=== PATIENT | male | born 1970 | race Caucasian/White ===

== ENCOUNTER 2020-01-22 12:40 | Emergency (ER) | payer BC, SELFPAY ==
[2020-01-22 13:19] LABS: Bilirubin Small (Negative); Blood, Urine Large (Negative); Clarity Cloudy (Clear); Glucose, Urine (Dipstick) Negative (Negative); Ketone, Urine 40 mg/dL (Negative); Leukocyte Negative (Negative); Nitrite Negative (Negative); Protein, Urine (Dipstick) 100 mg/dL (Neg-Trace); Specific Gravity, Urine 1.015 (1.005-1.030); pH, Urine 8.5 (5.0-9.0)
[2020-01-22] MEDS ORDERED: Morphine 4 MG/ML VIAL ONE (13:23)
[2020-01-22] MEDS ORDERED: Promethazine HCl 25 MG/ML VIAL ONE (13:23)
[2020-01-22] MEDS ORDERED: Sodium Chloride 0.9% 1,000 ML ONE (13:23)
[2020-01-22 13:24] LABS: #Basophils 0.1 thou/uL (0.0-0.2); #Monocytes 0.5 thou/uL (0.11-0.59); #Neutrophils 3.5 thou/uL (1.40-6.50); %Basophils 1.6 % (0.0-1.0); %Eosinophils 0.1 % (0.0-10.0); %Lymphocytes 33.3 % (21.0-51.0); %Monocytes 7.4 % (0.0-10.0); %Neutrophils 57.6 % (42.0-75.0); Hemoglobin 14.2 g/dL (14.0-18.0); Mean Corpuscular HGB CONC 33.5 g/dL (32.0-36.0); Mean Corpuscular Hemoglobin 29.9 pg (27.0-31.0); Mean Corpuscular Volume 89.1 fL (78.0-98.0); Mean Platelet Volume 9.2 fL (7.4-10.4); Platelet Count 213 thou/uL (130-400); RBC Distribution Width 11.5 % (11.5-14.5); Red Blood Cell (RBC) Count 4.75 mill/uL (4.70-6.10); White Blood Cell (WBC) Count 6.1 thou/uL (4.8-10.8)
[2020-01-22 13:32] LABS: RBC/HPF Greater than 50 HPF (0-3)
[2020-01-22 13:33] LABS: Bacteria/HPF 1+ HPF (None Seen); Mucous/LPF 1+ LPF (<2+); Squamous Epithelial 0-3 HPF (0-3); WBC/HPF 0-3 HPF (0-3)
[2020-01-22 14:02] LABS: Anion Gap 19 mmol/L (10-20); BUN (Urea Nitrogen) 14 mg/dL (8.9-20.6); Calc. Creatinine Clearance 0 mL/min (70-130); Calcium 9.1 mg/dL (7.8-10.44); Carbon Dioxide 18 mmol/L (22-29); Chloride 107 mmol/L (98-107); Estimated GFR-MDRD 86; Glucose 98 mg/dL (70-105); Potassium 3.5 mmol/L (3.5-5.1); Sodium 140 mmol/L (136-145)
[2020-01-22] MEDS ORDERED: Ketorolac Tromethamine 30 MG/ML VIAL ONE (14:17)
--- NOTE | 2020-01-22 14:57 | CT ---
CT ABDOMEN AND PELVIS WITHOUT CONTRAST STONE PROTOCOL: HISTORY: Flank pain and hematuria. COMPARISON: None. FINDINGS: Lung bases are clear. No pericardial effusion. Mild left hydroureteral nephrosis partially obstructing 2 x 2 mm calculus distal left ureter at the u reterovesicular junction. Low-grade left perinephric stranding. No right-sided hydroureteral nephrosis or nephroureterolithiasis. Small hypodensity superior pole of the right kidney has fluid attenuation to suggest a cyst. Mild diverticular disease of the sigmoid colon without active current inflammation. The appendix is visualized and is normal. No acute osseous abnormality. 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 IMPRESSION: 1. Low-grade partially obstructing left distal ureteral 2 x 2 mm calculus at the ureterovesicular ju nction with mild hydroureteral nephrosis. 2. No other renal calculi are appreciated. POS: [facility]
== END 2020-01-22 14:30 | disposition home or self-care (01) ==
LOC: MADERS 12:40
DX: N13.2 Hydronephrosis with renal and ureteral calculous obstruction (principal)
CPT/HCPCS: 74176; 80048; 81003; 81015; 83690; 85025; 96365; 96375; J1885; J2270; J2550; J7050

== ENCOUNTER 2025-01-27 11:37 | Emergency (ER) | payer OTHER, SELFPAY ==
[2025-01-27] MEDS ORDERED: Cyclobenzaprine 10 MG TAB ONE (12:09)
== END 2025-01-27 12:27 | disposition home or self-care (01) ==
LOC: MADERS 11:37
DX: S29.011A Strain of muscle and tendon of front wall of thorax, initial encounter (principal); X50.0XXA Overexertion from strenuous movement or load, initial encounter
CPT/HCPCS: 71046; 93005